=== PATIENT | female | born 1950 | race Caucasian/White ===

== ENCOUNTER 2016-07-25 15:41 | Emergency (ER) | payer MEDICARE, BC ==
[~2016-07-25] VITALS: Ht 170.2 cm; Wt 96.0 kg
[~2016-07-25 15:41] MED LIST: ACIP20TA19 PO; AGGR20025 PO; ARIC5TAB PO; ARIP1TAB46 PO; ASPI81 PO; CARB25TA4 PO; CART120C2 PO; CENTTAB9 PO; CLOP75 PO; EZET10 PO; ISOS30TA3 PO; LAMO100 PO; METO25 PO; NITR0.4S SL; ROSU10 PO; SAXA1TBM PO; SERO300T PO; SYNT125T PO; VENL25TA14 PO; XANA1TAB6 PO; XOPEAER4 IN
[2016-07-25 15:50] VITALS: BP 139/91; PULSE 105; RESP 20; TEMP 98.1; O2SAT 97
[2016-07-25 16:11] LABS: BLOOD, URINE SMALL (NEG); GLUCOSE,URINE NEG (NEG); KETONE, URINE NEG (NEG); NITRITE,URINE NEG (NEG)
[2016-07-25 16:35] LABS: URINE COLOR STRAW (YELLW/STRAW)
[2016-07-25 16:36] LABS: BACTERIA, URINE OCC /hpf; COMMENT (UR) CULTURE INDICATED; CULTURE IF INDICATED CULTURE INDICATED; SQUAMOUS EPITHELIAL CELL URINE 0-5 /hpf (0-5)
--- NOTE | 2016-07-25 19:57 | PD ---
HPI Chief Complaint: Complaint Time Seen by Provider: 19:53 Travel History International Travel<30 days: No Contact w/Intl Traveler<30days: No Traveled to known affect area: No History of Present Illness HPI 66-year-old female presents to the emergency department for complaint of one day of dysuria frequency urgency and one week of fatigue. Patient has history of CAD with stent 2, hypertension, dyslipidemia, diabetes, COPD, tobaccoism, and previous hospitalization in 2014 for acute renal failure with dialysis sepsis with septic shock and rhabdomyolysis. Patient states that she is followed by a primary care physician in [place] where she lives half the year and has not yet established with a primary care provider since moving here in May for half the year. Patient denies fever, chills, nausea, or vomiting. Patient rates discomfort with urination 8/10 in intensity. Patient denies head pain, neck pain, chest pain, shortness of breath, mid scapular pain , referred neck jaw back shoulder arm pain, epigastric pain, umbilical pain, does note some right-sided flank pain to percussion as well as right lower quadrant discomfort to palpation status post cholecystectomy and appendectomy. No report of diarrhea or constipation or change in dietary intake. Patient notes that urination worsen symptoms unable to identify alleviating factors. Patient does not report any hematuria or history of renal colic or kidney stones. PFSH Past Medical History Narrative Medical Arthritis COPD CAD cardiac catheterization with stent dyslipidemia hypertension diabetes renal failure GERD Parkinson's dementia partial complex seizure hypothyroidism cholecystectomy appendectomy tobacco use nursing notes reviewed Hx Anticoagulant Therapy: Yes Arthritis: Yes Asthma: Yes Bipolar Disorder: Yes Anxiety: Yes Depression: Yes Cardiac Catheterization: Yes (X3,LAST ONE 2004) Cardiovascular Problems: Yes (stent) High Cholesterol: Yes Chest Pain: Yes COPD: Yes Coronary Artery Disease: Yes Diabetes: Yes Diminished Hearing: No Endocrine: Yes Gastrointestinal Disorders: Yes (IBS) GERD: Yes Hypertension: Yes Musculoskeletal: Yes (DEGENERATIVE DISC DISEASED AND ONE DISC REMOVED) Neurologic: Yes Parkinson's Disease: Yes Psychiatric: Yes (BIPOLAR) Respiratory: Yes Seizures: Yes ("COMPLEX PARTIAL SEIZURES") Thyroid Disease: Yes ("UNDERACTIVE") Menopausal: Yes Past Surgical History Abdominal Surgery: Yes (CHOLECYSECTOMY ) Appendectomy: Yes Body Medical Devices: STENT CARDIAC Cardiac Surgery: Yes (6 cardiac stents) Cholecystectomy: Yes (1997) Coronary Stent: Yes Other Surgery: Yes ("R BREAST BIOPSY MANY YRS AGO") Social History Alcohol Use: No Tobacco Use: Yes (2 PPD) Substance Use: No Allergies-Medications (Allergen,Severity, Reaction): Coded Allergies: Corticosteroids (Verified Adverse Reaction, Mild, MANIC, 07/25/16) Reported Meds & Prescriptions Reported Meds & Active Scripts Active Pyridium (Phenazopyridine HCl) 100 Mg Tab 100 Mg PO Q8H PRN Cipro (Ciprofloxacin HCl) 500 Mg Tab 500 Mg PO BID 10 Days Reported Hydrochlorothiazide 25 Mg Tab 25 Mg PO DAILY Amlodipine (Amlodipine Besylate) 10 Mg Tab 10 Mg PO DAILY Potassium Chloride CR (Potassium Chloride) 10 Meq Tab 20 Meq PO DAILY Effexor (Venlafaxine HCl) 75 Mg Tab 75 Mg PO Q12H Synthroid (Levothyroxine Sodium) 125 Mcg Tab 125 Mcg PO DAILY Crestor (Rosuvastatin Calcium) 10 Mg Tab 10 Mg PO DAILY Lamictal (Lamotrigine) 100 Mg Tab 100 Mg PO DAILY Zetia (Ezetimibe) 10 Mg Tab 10 Mg PO DAILY Aricept (Donepezil) 5 Mg Tab 5 Mg PO HS Cartia Xt (Diltiazem ER 24 HR) 120 Mg Caper 120 Mg PO DAILY Plavix (Clopidogrel Bisulfate) 75 Mg Tab 75 Mg PO DAILY Carbidopa-Levodopa 25-100 Mg Tab 1 Tab PO BID Aspirin 81 Mg Tabdr 81 Mg PO DAILY Abilify (Aripiprazole) 10 Mg Tab 10 Mg PO DAILY Review of Systems Except as stated in HPI: all other systems reviewed are Neg General / Constitutional: Positive: Other, No: Fever, Chills HENT: No: Congestion Cardiovascular: No: Chest Pain or Discomfort Respiratory: No: Shortness of Breath Gastrointestinal: Positive: Abdominal Pain, No: Nausea, Vomiting Genitourinary: Positive: Urgency, Frequency, Dysuria, Flank Pain Musculoskeletal: No: Myalgias, Arthralgias Skin: No Rash Neurologic: No: Weakness Psychiatric: No: Anxiety Hematologic/Lymphatic: No: Easy Bruising Physical Exam Narrative GENERAL: Well-developed well-nourished female in no acute distress no respiratory distress SKIN: Warm and dry. HEAD: Atraumatic. Normocephalic. EYES: Pupils equal and round. No scleral icterus. No injection or drainage. ENT: No nasal bleeding or discharge. Mucous membranes pink and moist. NECK: Trachea midline. No JVD. CARDIOVASCULAR: Regular rate and rhythm. RESPIRATORY: No accessory muscle use. Clear to auscultation. Breath sounds equal bilaterally. GASTROINTESTINAL: Abdomen soft, non-tender except for mild right lower quadrant tenderness to direct palpation without guarding or rebound, nondistended. Hepatic and splenic margins not palpable. MUSCULOSKELETAL: Extremities without clubbing, cyanosis, or edema. No obvious deformities. Mild right flank tenderness to percussion NEUROLOGICAL: Awake and alert. No obvious cranial nerve deficits. Motor grossly within normal limits. Five out of 5 muscle strength in the arms and legs. Normal speech. PSYCHIATRIC: Appropriate mood and affect; insight and judgment normal. Data Data Last Documented VS Vital Signs Date Time Temp Pulse Resp B/P Pulse Ox O2 Delivery O2 Flow Rate FiO2 07/25/16 22:26 90 16 134/82 95 Room Air 07/25/16 20:01 98.1 Orders Urinalysis - C+S If Indicated (07/25/16 15:53) Urine Culture (07/25/16 16:00) ^ Saline Lock (07/25/16 19:53) Complete Blood Count With Diff (07/25/16 19:53) Basic Metabolic Panel (Bmp) (07/25/16 19:53) Blood Culture (07/25/16 19:53) Lactic Acid (07/25/16 19:53) Ceftriaxone Inj (Rocephin Inj) (07/25/16 20:00) Phenazopyridine (Pyridium) (07/25/16 20:00) Potassium Chloride (Kcl) (07/25/16 21:45) Potassium Chlor 10 Meq Premix (Kcl 10 Me (07/25/16 21:45) Ciprofloxacin (Cipro) (07/25/16 22:00) Sodium Chlor 0.9% 250 Ml Inj (Ns 250 Ml (07/25/16 22:00) Labs Laboratory Tests Test 07/25/16 07/25/16 16:00 20:25 Urine Color STRAW Urine Turbidity SLIGHT Urine pH 6.0 Urine Specific [place] 1.012 Urine Protein TRACE mg/dL Urine Glucose (UA) NEG mg/dL Urine Ketones NEG mg/dL Urine Occult Blood SMALL Urine Nitrite NEG Urine Bilirubin NEG Urine Leukocyte Esterase LARGE Urine RBC 10-14 /hpf Urine WBC 50-99 /hpf Urine WBC Clumps FEW Urine Squamous Epithelial 0-5 /hpf Cells Urine Bacteria OCC /hpf Microscopic Urinalysis Comment CULTURE INDICATED White Blood Count 7.7 TH/MM3 Red Blood Count 4.70 MIL/MM3 Hemoglobin 12.8 GM/DL Hematocrit 38.2 % Mean Corpuscular Volume 81.2 FL Mean Corpuscular Hemoglobin 27.2 PG Mean Corpuscular Hemoglobin 33.5 % Concent Red Cell Distribution Width 13.9 % Platelet Count 313 TH/MM3 Mean Platelet Volume 7.2 FL Neutrophils (%) (Auto) 72.3 % Lymphocytes (%) (Auto) 21.1 % Monocytes (%) (Auto) 6.0 % Eosinophils (%) (Auto) 0.0 % Basophils (%) (Auto) 0.6 % Neutrophils # (Auto) 5.6 TH/MM3 Lymphocytes # (Auto) 1.6 TH/MM3 Monocytes # (Auto) 0.5 TH/MM3 Eosinophils # (Auto) 0.0 TH/MM3 Basophils # (Auto) 0.0 TH/MM3 CBC Comment DIFF FINAL Differential Comment Sodium Level 141 MEQ/L Potassium Level 2.8 MEQ/L Chloride Level 99 MEQ/L Carbon Dioxide Level 30.2 MEQ/L Anion Gap 12 MEQ/L Blood Urea Nitrogen 16 MG/DL Creatinine 1.10 MG/DL Estimat Glomerular Filtration 50 ML/MIN Rate Random Glucose 156 MG/DL Lactic Acid Level 1.9 mmol/L Calcium Level 9.1 MG/DL [facility] Medical Decision Making Medical Screen Exam Complete: Yes Emergency Medical Condition: Yes Medical Record Reviewed: Yes Interpretation(s) Urinalysis: Positive blood positive red blood cells positive white blood cells positive Red blood cells positive bacteria cultures indicated Lactic acid is in normal range at 1.9 Metabolic panel remarkable for hypokalemia of 2.8 mild renal insufficiency creatinine is 1.1 serum while elevated CBC is automated differential values grossly normal range CBC & BMP Diagram 07/25/16 20:25 Vital Signs Date Time Temp Pulse Resp B/P Pulse Ox O2 Delivery O2 Flow Rate FiO2 07/25/16 20:01 98.1 89 18 136/90 97 Room Air 07/25/16 20:01 88 18 07/25/16 15:50 98.1 105 20 139/91 97 Differential Diagnosis UTI, pyelonephritis, sepsis, obstructive uropathy/renal colic, dehydration, electrolyte disturbance Narrative Course Specimen collected in triage due to patient's triage tachycardia we'll obtain baseline CBC metabolic panel blood cultures and lactic acid level will also administer Rocephin 1 g IV piggyback due to clearly abnormal urinalysis while waiting for renal function as may be a candidate for quinolone antibiotic management. Patient complaining about the emergency department waiting for lab results to be finalized and waiting for dyspnea Patient informed of hypokalemia received oral potassium replacement 40 mEq by mouth and IV potassium replacement 10 mEq IV; also given first dose of Cipro for this evening 500 mg by mouth Patient is stable for outpatient management and close follow-up with primary care provider will need to increase potassium daily dosing over the next 2 days and will need close follow-up with primary care provider for recheck of serum potassium level; patient is encouraged to increase fluid hydration; patient is encouraged to complete course of antibiotic as prescribed; patient is aware the culture is pending and results be available and approximate 48 hours; patient's return to the emergency department for any concerns or change in condition. Diagnosis Primary Impression: UTI (urinary tract infection) Additional Impression: Hypokalemia Referrals: Primary Care Physician 1 day Patient Instructions: General Instructions Additional Instructions: Increase fluid hydration Increase potassium 2 mEq 2 tablets daily for the next 2 days Follow-up with primary care provider call office in a.m. to schedule follow-up appointment Complete course of antibiotic as prescribed Return to the emergency department for any concerns or change in condition Monitor temperature for fever take acetaminophen/Tylenol every 4 hours as needed for fever 100.4F or greater Take Pyridium as prescribed as needed for pain with urination Med/Other Pt SpecificInfo: Prescription(s) given Scripts Phenazopyridine (Pyridium)100 Mg [id number] Mg PO Q8H PRN (DYSURIA) #6 TAB Ref 0 Prov:Ludy Marshall MD 07/25/16 Ciprofloxacin (Cipro)500 Mg [id number] Mg PO BID 10 Days Ref 0 Prov:Ludy Marshall MD 07/25/16 Disposition: 01 DISCHARGE HOME Condition: Stable Ludy Marshall MD Jul 25, 2016 19:57
[2016-07-25] MEDS ORDERED: PHENAZOPYRIDINE HCL 100 MG TAB PO ONE (20:00)
[2016-07-25] MEDS ORDERED: cefTRIAXone INJ 1,000 MG in SODIUM CHLORIDE 0.9% INJ 100 ML IV ONE (20:00)
[2016-07-25 20:01] VITALS: BP 136/90; PULSE 89; RESP 18; TEMP 98.1; O2SAT 97
[2016-07-25] MEDS ORDERED: POTA10TA8 PO (20:21)
[2016-07-25] MEDS ORDERED: LEVO.125 PO (20:21)
[2016-07-25] MEDS ORDERED: HYDR25TA5 PO (20:21)
[2016-07-25] MEDS ORDERED: ZETI10TA5 PO (20:21)
[2016-07-25] MEDS ORDERED: AMLO10TA2 PO (20:21)
[2016-07-25] MEDS ORDERED: LAMO100 PO (20:21)
[2016-07-25] MEDS ORDERED: VENL75TA PO (20:21)
[2016-07-25] MEDS ORDERED: ROSU10 PO (20:21)
[2016-07-25] MEDS ORDERED: PLAV75TA29 PO (20:21)
[2016-07-25] MEDS ORDERED: CART120C PO (20:21)
[2016-07-25] MEDS ORDERED: ARIC5TAB PO (20:21)
[2016-07-25] MEDS ORDERED: ASPI1TAB69 PO (20:21)
[2016-07-25] MEDS ORDERED: CARB25TA9 PO (20:21)
[2016-07-25] MEDS ORDERED: ARIP1TAB5 PO (20:21)
[2016-07-25 20:45] LABS: AUTOMATED NEUTROPHIL # 5.6 TH/MM3 (1.8-7.7); BASOPHIL % 0.6 % (0.0-2.0); HEMATOCRIT 38.2 % (35.0-46.0); HEMO FLAGS DIFF FINAL; LYMPH % 21.1 % (9.0-44.0); LYMPHOCYTE # 1.6 TH/MM3 (1.0-4.8); MEAN CELL VOLUME 81.2 FL (80.0-100.0); MEAN CORPUSCULAR HEMOGLOBIN 27.2 PG (27.0-34.0); MEAN CORPUSCULAR HGB CONC 33.5 % (32.0-36.0); NEUT % 72.3 % (16.0-70.0); PLATELET COUNT 313 TH/MM3 (150-450); RED CELL DISTRIBUTION WIDTH 13.9 % (11.6-17.2); WHITE BLOOD COUNT 7.7 TH/MM3 (4.0-11.0)
[2016-07-25 21:33] LABS: BICARBONATE 30.2 MEQ/L (21.0-32.0)
[2016-07-25 21:34] LABS: POTASSIUM 2.8 MEQ/L (3.5-5.1)
[2016-07-25] MEDS ORDERED: POTASSIUM CHLOR 10 MEQ PREMIX 100 ML IV ONE (21:45)
[2016-07-25] MEDS ORDERED: POTASSIUM CHLORIDE 20 MEQ CONTROLLED RELEASE TAB PO ONE (21:45)
[2016-07-25] MEDS ORDERED: PHEN0.4T PO (21:48)
[2016-07-25] MEDS ORDERED: CIPR-9 PO (21:48)
[2016-07-25] MEDS ORDERED: SODIUM CHLOR 0.9% 250 ML INJ 250 ML IV ONE (22:00)
[2016-07-25] MEDS ORDERED: CIPROFLOXACIN 500 MG TAB PO ONE (22:00)
[2016-07-25 22:26] VITALS: BP 134/82; PULSE 90; RESP 16; O2SAT 95
== END 2016-07-25 23:22 | disposition home or self-care (01) ==
LOC: PHED 15:41
DX: N39.0 Urinary tract infection, site not specified (principal); B96.20 Unspecified Escherichia coli [E. coli] as the cause of diseases classified elsewhere; E87.6 Hypokalemia; N28.9 Disorder of kidney and ureter, unspecified; I10 Essential (primary) hypertension; G20 Parkinson's disease; E11.9 Type 2 diabetes mellitus without complications; J44.9 Chronic obstructive pulmonary disease, unspecified; E78.00 Pure hypercholesterolemia, unspecified; Z79.01 Long term (current) use of anticoagulants; Z79.82 Long term (current) use of aspirin
CPT/HCPCS: 80048; 81001; 83605; 85025; 87040; 87077; 87086; 87186; 96365; 96367; 99284; J0696; J3480; J7050

== ENCOUNTER 2017-10-21 11:43 | Emergency (ER) | payer MEDICARE, BC ==
[~2017-10-21] VITALS: Ht 172.7 cm; Wt 95.6 kg
[~2017-10-21 11:43] MED LIST changes: +ABIL10TA8 PO; -ACIP20TA19 PO; -AGGR20025 PO; +AMLO10TA2 PO; -ARIP1TAB46 PO; +ASPI1TAB69 PO; -ASPI81 PO; -CARB25TA4 PO; +CARB25TA9 PO; +CART120C PO; -CART120C2 PO; -CENTTAB9 PO; +CIPR-9 PO; -CLOP75 PO; +HYDR25TA5 PO; -ISOS30TA3 PO; +LEVO.125 PO; -METO25 PO; -NITR0.4S SL; +PHEN0.4T PO; +PLAV75TA29 PO; +POTA10TA8 PO; -SAXA1TBM PO; -SERO300T PO; -SYNT125T PO; -VENL25TA14 PO; +VENL75TA PO; -XANA1TAB6 PO; -XOPEAER4 IN
[2017-10-21 11:46] VITALS: BP 142/84; PULSE 111; RESP 22; TEMP 98; O2SAT 97
[2017-10-21] MEDS ORDERED: ASPI81CH7 CHEW (12:07)
[2017-10-21] MEDS ORDERED: LEVO.125 PO (12:07)
[2017-10-21] MEDS ORDERED: RABE1TAB PO (12:07)
[2017-10-21] MEDS ORDERED: FOLI400T PO (12:07)
[2017-10-21] MEDS ORDERED: EZET10 PO (12:07)
[2017-10-21] MEDS ORDERED: DONE10TA7 PO (12:07)
[2017-10-21] MEDS ORDERED: POTA-163 PO (12:07)
[2017-10-21] MEDS ORDERED: HYDR200T3 PO (12:07)
[2017-10-21] MEDS ORDERED: QUET1TAB10 PO (12:07)
[2017-10-21] MEDS ORDERED: SODIUM CHLORIDE 0.9% FLUSH 10 ML FLUSH IVF PRN (12:15)
[2017-10-21 12:23] VITALS: O2SAT 97
[2017-10-21 12:29] LABS: AUTOMATED NEUTROPHIL # 3.9 TH/MM3 (1.8-7.7); BASOPHIL % 0.4 % (0.0-2.0); HEMATOCRIT 39.1 % (35.0-46.0); HEMOGLOBIN 12.6 GM/DL (11.6-15.3); LYMPHOCYTE # 1.1 TH/MM3 (1.0-4.8); MEAN CELL VOLUME 90.6 FL (80.0-100.0); MEAN CORPUSCULAR HEMOGLOBIN 29.2 PG (27.0-34.0); MEAN CORPUSCULAR HGB CONC 32.3 % (32.0-36.0); MEAN PLATELET VOLUME 7.6 FL (7.0-11.0); MONOCYTE # 0.6 TH/MM3 (0-0.9); NEUT % 68.6 % (16.0-70.0); PLATELET COUNT 211 TH/MM3 (150-450); RED BLOOD COUNT 4.31 MIL/MM3 (4.00-5.30); RED CELL DISTRIBUTION WIDTH 14.3 % (11.6-17.2); WHITE BLOOD COUNT 5.6 TH/MM3 (4.0-11.0)
[2017-10-21 12:35] LABS: BILIRUBIN, URINE NEG (NEG); BLOOD, URINE TRACE (NEG); GLUCOSE,URINE NEG (NEG); KETONE, URINE NEG (NEG); NITRITE,URINE NEG (NEG); PH, URINE 6.5 (5.0-8.5); URINE COLOR YELLOW (YELLW/STRAW); URINE LEUKOCYTE ESTERASE TRACE (NEG)
[2017-10-21 12:42] LABS: BICARBONATE 24.9 MEQ/L (21.0-32.0); CALCIUM 8.6 MG/DL (8.5-10.1)
--- NOTE | 2017-10-21 12:53 | RADRPT ---
EXAM DATE: 10/21/2017 12:47 PM EDT AGE/SEX: 67 years / Female INDICATIONS: Right lower extremity weakness. CLINICAL DATA: This is the patient's initial encounter. Patient reports that signs and symptoms have been present for 2 days and indicates a pain score of 0/10. MEDICAL/SURGICAL HISTORY: Cardiovascular disease. Hypertension. Diabetes. Parkinson's disease. S eizure. Coronary artery stent. Appendectomy. Cholecystectomy. RADIATION DOSE: 54.28 CTDI (mGy) COMPARISON: [facility] [place]/O [place], 04/12/2015. . TECHNIQUE: CT of the head without contrast. Using automated exposure control and adjustment of the mA and/or kV according to patient size, radiation dose was kept as low as reasonably achievable to ob tain optimal diagnostic quality images. FINDINGS: There is stable mild ventriculomegaly without evidence for acute infarct, intracranial hemorrhage, or mass. The osseous structures are intact. CONCLUSION: 1. Stable examination. Electronically signed by: Roosevelt Perez MD 10/21/2017 12:51 PM EDT
[2017-10-21 12:57] LABS: RBC, URINE 0-3 /hpf (0-3); SQUAMOUS EPITHELIAL CELL URINE 0-5 /hpf (0-5); WBC, URINE 0-2 /hpf (0-5)
[2017-10-21 12:59] VITALS: BP 145/79; PULSE 85; RESP 16; O2SAT 97
--- NOTE | 2017-10-21 13:17 | PD ---
HPI . Weakness Chief Complaint: General Weakness Time Seen by Provider: 11:59 Travel History International Travel<30 days: No Contact w/Intl Traveler<30days: No Traveled to known affect area: No History of Present Illness HPI Patient presents with chief complaint of weakness of her right leg. Onset was last night. She is also complaining with nausea and shortness of breath. She states her symptoms have been consistent for the last 12 hours. There are no modifying factors. Symptoms are mild. PFSH Past Medical History Hx Anticoagulant Therapy: Yes Arthritis: Yes Asthma: Yes Bipolar Disorder: Yes Anxiety: Yes Depression: Yes Cardiac Catheterization: Yes (X3,LAST ONE 2004) Cardiovascular Problems: Yes High Cholesterol: Yes Chest Pain: Yes COPD: Yes Coronary Artery Disease: Yes Diabetes: Yes Patient Takes Glucophage: No Diminished Hearing: No Endocrine: Yes Gastrointestinal Disorders: Yes (IBS) GERD: Yes Hypertension: Yes Musculoskeletal: Yes (DEGENERATIVE DISC DISEASED AND ONE DISC REMOVED) Neurologic: Yes Parkinson's Disease: Yes Psychiatric: Yes (BIPOLAR) Respiratory: Yes Seizures: Yes ("COMPLEX PARTIAL SEIZURES") Thyroid Disease: Yes ("UNDERACTIVE") ?: Not Menopausal: Yes Past Surgical History Abdominal Surgery: Yes (CHOLECYSECTOMY ) Appendectomy: Yes Body Medical Devices: STENT CARDIAC Cardiac Surgery: Yes (2 CARDIAC STENTS) Cholecystectomy: Yes (1997) Coronary Stent: Yes Insulin Pump: No Other Surgery: Yes ("R BREAST BIOPSY MANY YRS AGO") Family History Family Myocardial Infarction: No Social History Alcohol Use: No Tobacco Use: No Substance Use: No Allergies-Medications (Allergen,Severity, Reaction): Coded Allergies: ibuprofen (Verified Allergy, Unknown, KIDNEY FAILURE, 10/21/17) amcinonide (Unverified Adverse Reaction, Mild, MANIC, 10/21/17) beclomethasone (Unverified Adverse Reaction, Mild, MANIC, 10/21/17) betamethasone (Unverified Adverse Reaction, Mild, MANIC, 10/21/17) desoximetasone (Unverified Adverse Reaction, Mild, MANIC, 10/21/17) dexamethasone (Unverified Adverse Reaction, Mild, MANIC, 10/21/17) fludrocortisone (Unverified Adverse Reaction, Mild, MANIC, 10/21/17) flunisolide (Unverified Adverse Reaction, Mild, MANIC, 10/21/17) fluocinolone acetonide (Unverified Adverse Reaction, Mild, MANIC, 10/21/17) fluocinonide (Unverified Adverse Reaction, Mild, MANIC, 10/21/17) fluorometholone (Unverified Adverse Reaction, Mild, MANIC, 10/21/17) flurandrenolide (Unverified Adverse Reaction, Mild, MANIC, 10/21/17) fluticasone (Unverified Adverse Reaction, Mild, MANIC, 10/21/17) fluticasone furoate (Unverified Adverse Reaction, Mild, MANIC, 10/21/17) hydrocortisone (Unverified Adverse Reaction, Mild, MANIC, 10/21/17) methylprednisolone (Unverified Adverse Reaction, Mild, MANIC, 10/21/17) mometasone furoate (Unverified Adverse Reaction, Mild, MANIC, 10/21/17) prednisolone (Unverified Adverse Reaction, Mild, MANIC, 10/21/17) prednisone (Unverified Adverse Reaction, Mild, MANIC, 10/21/17) triamcinolone (Unverified Adverse Reaction, Mild, MANIC, 10/21/17) Reported Meds & Prescriptions Reported Meds & Active Scripts Active Reported Rabeprazole (Rabeprazole Sodium) 20 Mg Tab 20 Mg PO DAILY Hydroxychloroquine (Hydroxychloroquine Sulfate) 200 Mg Tab 400 Mg PO DAILY Takw with food Folic Acid 0.4 Mg Tab 400 Mcg PO DAILY Quetiapine (Quetiapine Fumarate) 300 Mg Tab 300 Mg PO HS Synthroid (Levothyroxine Sodium) 125 Mcg Tab 250 Mcg PO DAILY Donepezil 10 Mg Tab 10 Mg PO HS Potassium Chloride ER (Potassium Chloride) 20 Meq Tab 20 Meq PO DAILY Zetia (Ezetimibe) 10 Mg Tab 10 Mg PO DAILY Aspirin Children's (Aspirin) 81 Mg Chew 81 Mg CHEW DAILY Hydrochlorothiazide 25 Mg Tab 25 Mg PO DAILY Amlodipine (Amlodipine Besylate) 10 Mg Tab 10 Mg PO DAILY Effexor (Venlafaxine HCl) 75 Mg Tab 75 Mg PO Q12H Crestor (Rosuvastatin Calcium) 10 Mg Tab 10 Mg PO DAILY Lamictal (Lamotrigine) 100 Mg Tab 100 Mg PO DAILY Cartia Xt (Diltiazem ER 24 HR) 120 Mg Caper 120 Mg PO DAILY Plavix (Clopidogrel Bisulfate) 75 Mg Tab 75 Mg PO DAILY Abilify (Aripiprazole) 10 Mg Tab 10 Mg PO DAILY Review of Systems Except as stated in HPI: all other systems reviewed are Neg Eyes: No: Blurred Vision HENT: No: Headaches Respiratory: Positive: Shortness of Breath Gastrointestinal: Positive: Nausea Neurologic: Positive: Weakness, Focal Abnormalities Physical Exam Narrative GENERAL: Awake and alert and in no acute distress. SKIN: warm/dry. Normal color and turgor. HEAD: Normocephalic. Atraumatic. EYES: Pupils equal and round. Extraocular movements are intact. ENT: Mucous membranes pink and moist. NECK: Supple. Full range of motion without pain.. CARDIOVASCULAR: Regular rate and rhythm. Heart sounds normal. RESPIRATORY: No accessory muscle use. Clear to auscultation. Breath sounds equal bilaterally. Respiratory rate 16 with sats of 97% on room air. MUSCULOSKELETAL: No obvious deformities. Normal muscle tone. NEUROLOGICAL: Awake and alert. Normal speech. Normal and symmetric wrinkling of the forehead, closing of the eyes, smile, protruding of the tongue his production sanitizer strengths are full and equal. [id number] exam is intact. Negative pronator drift. Negative leg drift. Toes are downgoing bilaterally. Normal speech. PSYCHIATRIC: Appropriate mood and affect; insight and judgment normal. Data Data Last Documented VS Vital Signs Date Time Temp Pulse Resp B/P (MAP) Pulse Ox O2 Delivery O2 Flow Rate FiO2 10/21/17 13:11 10/21/17 12:59 85 16 97 Room Air 10/21/17 11:46 98.0 Orders Orders Electrocardiogram (10/21/17 12:15) Complete Blood Count With Diff (10/21/17 12:15) Basic Metabolic Panel (Bmp) (10/21/17 12:15) Urinalysis - C+S If Indicated (10/21/17 12:15) Ct Brain W/O Iv Contrast(Rout) (10/21/17 12:15) Ecg Monitoring (10/21/17 12:15) Iv Access Insert/Monitor (10/21/17 12:15) Oximetry (10/21/17 12:15) Sodium Chloride 0.9% Flush (Ns Flush) (10/21/17 12:15) Ed Discharge Order (10/21/17 13:06) Labs Laboratory Tests Test 10/21/17 12:20 10/21/17 12:30 White Blood Count 5.6 TH/MM3 Red Blood Count 4.31 MIL/MM3 Hemoglobin 12.6 GM/DL Hematocrit 39.1 % Mean Corpuscular Volume 90.6 FL Mean Corpuscular Hemoglobin 29.2 PG Mean Corpuscular Hemoglobin Concent 32.3 % Red Cell Distribution Width 14.3 % Platelet Count 211 TH/MM3 Mean Platelet Volume 7.6 FL Neutrophils (%) (Auto) 68.6 % Lymphocytes (%) (Auto) 20.0 % Monocytes (%) (Auto) 11.0 % Eosinophils (%) (Auto) 0.0 % Basophils (%) (Auto) 0.4 % Neutrophils # (Auto) 3.9 TH/MM3 Lymphocytes # (Auto) 1.1 TH/MM3 Monocytes # (Auto) 0.6 TH/MM3 Eosinophils # (Auto) 0.0 TH/MM3 Basophils # (Auto) 0.0 TH/MM3 CBC Comment DIFF FINAL Differential Comment Blood Urea Nitrogen 15 MG/DL Creatinine 1.00 MG/DL Random Glucose 114 MG/DL Calcium Level 8.6 MG/DL Sodium Level 136 MEQ/L Potassium Level 4.0 MEQ/L Chloride Level 103 MEQ/L Carbon Dioxide Level 24.9 MEQ/L Anion Gap 8 MEQ/L Estimat Glomerular Filtration Rate 55 ML/MIN Urine Collection Type CATH Urine Color YELLOW Urine Turbidity CLEAR Urine pH 6.5 Urine Specific [place] 1.015 Urine Protein NEG mg/dL Urine Glucose (UA) NEG mg/dL Urine Ketones NEG mg/dL Urine Occult Blood TRACE Urine Nitrite NEG Urine Bilirubin NEG Urine Urobilinogen 1.0 MG/DL Urine Leukocyte Esterase TRACE Urine RBC 0-3 /hpf Urine WBC 0-2 /hpf Urine Squamous Epithelial Cells 0-5 /hpf Microscopic Urinalysis Comment CULT NOT INDICATED MDM Medical Decision Making Medical Screen Exam Complete: Yes Emergency Medical Condition: Yes Differential Diagnosis Differential diagnosis includes but is not limited to TIA, CVA, brain tumor, migraine, anxiety Narrative Course Patient presents complaining with right leg weakness. I am unable to demonstrate any weakness on exam. Last Impressions Head CT 10/21/17 1215 Signed Impressions: CONCLUSION: 1. Stable examination. CBC & BMP Diagram 10/21/17 12:20 Calcium Level 8.6 UA is negative. Disposition has been discussed with the patient. She prefers further workup as an outpatient. She does have a primary care physician. Diagnosis Primary Impression: Neurologic abnormality Patient Instructions: General Instructions, Disorders of Consciousness (GEN) Departure Forms: Tests/Procedures Disposition: 01 DISCHARGE HOME Condition: Stable Kristin Blount MD Oct 21, 2017 13:17
--- NOTE | 2017-10-21 15:17 | EKG ---
Date Performed: 10/21/2017 Time Performed: 12:24:54 PTAGE: 67 years EKG: Sinus rhythm POSSIBLE LEFT ATRIAL ENLARGEMENT INDETERMINATE AXIS RIGHT BUNDLE BRANCH BLOCK ABNORMAL ECG PREVIOUS TRACING : 04/12/2015 04.46 Since the previous tracing, no significant change noted DOCTOR: Shin Celeste Interpretating Date/Time 10/21/2017 15:16:09
== END 2017-10-21 13:22 | disposition home or self-care (01) ==
LOC: PHED 11:43
DX: R29.90 Unspecified symptoms and signs involving the nervous system (principal); R53.1 Weakness; R11.0 Nausea; R06.02 Shortness of breath; F31.9 Bipolar disorder, unspecified; R94.31 Abnormal electrocardiogram [ECG] [EKG]; I45.10 Unspecified right bundle-branch block; F41.9 Anxiety disorder, unspecified; M19.90 Unspecified osteoarthritis, unspecified site; E78.00 Pure hypercholesterolemia, unspecified; J44.9 Chronic obstructive pulmonary disease, unspecified; I25.10 Atherosclerotic heart disease of native coronary artery without angina pectoris; E11.9 Type 2 diabetes mellitus without complications; K58.9 Irritable bowel syndrome, unspecified; K21.9 Gastro-esophageal reflux disease without esophagitis; I10 Essential (primary) hypertension; G20 Parkinson's disease; E07.9 Disorder of thyroid, unspecified; Z95.5 Presence of coronary angioplasty implant and graft
CPT/HCPCS: 70450; 80048; 81001; 85025; 93005; 99285